=== PATIENT | male | born 1990 | race Hispanic/Latino ===

== ENCOUNTER 2017-11-09 16:53 | Emergency (ER) | payer SELFPAY ==
[~2017-11-09] VITALS: Ht 154.9 cm; Wt 61.4 kg
[~2017-11-09 16:53] MED LIST: CEPHALEXIN500 M1 OR; CEPHALEXIN500 MG PO; CLARITIN10 M1 PO; ULTRAM50 M1 PO
[2017-11-09] MEDS ORDERED: ZYRTEC10 MG PO (17:21)
[2017-11-09] MEDS ORDERED: PREDNISONE10 MG PO (17:21)
[2017-11-09 17:24] VITALS: BP 129/86
== END 2017-11-09 17:24 | disposition home or self-care (01) | DRG 153 ==
LOC: ED 16:53
DX: J02.9 Acute pharyngitis, unspecified (principal); F17.210 Nicotine dependence, cigarettes, uncomplicated

== ENCOUNTER 2017-12-24 14:10 | Emergency (ER) | payer SELFPAY ==
[~2017-12-24] VITALS: Ht 154.9 cm; Wt 65.0 kg
[~2017-12-24 14:10] MED LIST changes: +PREDNISONE10 MG PO; +ZYRTEC10 MG PO
[2017-12-24] MEDS ORDERED: DELTASONE20 MG PO (14:34)
[2017-12-24 14:45] VITALS: BP 132/77
== END 2017-12-24 14:45 | disposition home or self-care (01) | DRG 607 ==
LOC: ED 14:10
DX: L25.9 Unspecified contact dermatitis, unspecified cause (principal)

== ENCOUNTER 2019-01-26 09:23 | Emergency (ER) | payer SELFPAY ==
[~2019-01-26] VITALS: Ht 154.9 cm; Wt 65.0 kg
[~2019-01-26 09:23] MED LIST changes: +DELTASONE20 MG PO
[2019-01-26] MEDS ORDERED: BENADRYL 50MG C50 MG PO (09:33)
[2019-01-26] MEDS ORDERED: MEDDOSEPAK PO (09:33)
[2019-01-26] MEDS ORDERED: BENADRY2 EX (09:33)
[2019-01-26 09:52] VITALS: BP 131/85
== END 2019-01-26 09:52 | disposition home or self-care (01) | DRG 607 ==
LOC: ED 09:23
DX: L23.7 Allergic contact dermatitis due to plants, except food (principal); F17.200 Nicotine dependence, unspecified, uncomplicated

== ENCOUNTER 2019-04-22 22:32 | Emergency (ER) | payer OTHER ==
[~2019-04-22] VITALS: Ht 2.5 cm; Wt 60.8 kg
[~2019-04-22 22:32] MED LIST changes: +BENADRY2 EX; +BENADRYL 50MG C50 MG PO; +MEDDOSEPAK PO
[2019-04-22] MEDS ORDERED: AMOXICILLIN500 MG PO (23:21)
[2019-04-22 23:35] VITALS: BP 131/87
== END 2019-04-22 23:35 | disposition home or self-care (01) ==
LOC: ED 22:32
DX: H66.92 Otitis media, unspecified, left ear (principal); J02.9 Acute pharyngitis, unspecified; F17.210 Nicotine dependence, cigarettes, uncomplicated

== ENCOUNTER 2019-05-02 20:35 | Emergency (ER) | payer OTHER ==
[~2019-05-02] VITALS: Ht 157.5 cm; Wt 63.6 kg
[~2019-05-02 20:35] MED LIST changes: +AMOXICILLIN500 MG PO
[2019-05-02 21:22] LABS: HEMATOCRIT 40.3 % (39.0-50.0); HEMOGLOBIN 13.2 g/dl (14.0-18.0); IMMATURE GRANULOCYTES 0.3 % (0.0-5.0); MEAN CELL VOLUME 93.9 fL CALC (80.0-100.0); MEAN CORPUSCULAR HGB 30.8 pG CALC (26.0-32.0); MEAN CORPUSCULAR HGB CONC 32.8 g/L CALC (32.0-36.0); NEUT# 6.62 thou/uL (1.82-7.42); RED BLOOD COUNT 4.29 mill/uL (4.70-6.10); RED CELL DISTRI WIDTH 12.9 % (11.5-15.5)
[2019-05-02 21:23] LABS: URINE BILIRUBIN - DIPSTICK NEGATIVE (NEGATIVE); URINE BLOOD DIPSTICK LARGE (NEGATIVE); URINE GLUCOSE - DIPSTICK NEGATIVE (NEGATIVE); URINE KETONE NEGATIVE (NEGATIVE); URINE LEUK ESTERASE NEGATIVE (NEGATIVE); URINE NITRITE - DIPSTICK NEGATIVE (Negative); URINE PROTEIN - DIPSTICK 30 mg/dL (NEG-TRACE); URINE SPECIFIC GRAVITY 1.025
[2019-05-02 21:24] LABS: URINE COLOR AMBER
[2019-05-02 21:29] LABS: URINE RBC >100 RBC/hpf (0-5)
[2019-05-02 21:43] LABS: ALKALINE PHOSPHATASE 110 u/l (38-126); AMYLASE 46 u/l (30-110); ANION GAP 16 (6-22 (CALC)); BILIRUBIN, TOTAL 0.3 mg/dL (0.0-1.4); BUN 13 mg/dL (9-20); BUN/CREATININE RATIO 16 (12-20 (CALC)); CARBON DIOXIDE 25 mmol/l (22-30); CHLORIDE 104 mmol/l (95-108); CREATININE 0.8 mg/dL (0.7-1.3); GFR > 60 ML/MIN (>=60 (CALC)); GFR FOR AFR.AMER. > 60 ML/MIN (>=60 (CALC)); LIPASE 86 u/l (23-300); POTASSIUM 4.3 mmol/l (3.5-5.1); SGOT/AST 29 u/l (17-59); SODIUM 140 mmol/l (137-146); TOTAL PROTEIN 8.6 g/dL (6.3-8.2)
[2019-05-02] MEDS ORDERED: LORTAB 1010 MG PO (23:19)
[2019-05-02] MEDS ORDERED: TAMSULOSIN0.4 MG PO (23:19)
[2019-05-02 23:22] VITALS: BP 118/79
== END 2019-05-02 23:35 | disposition home or self-care (01) ==
LOC: ED 20:35
PROVIDERS: Emergency Medicine
DX: N20.0 Calculus of kidney (principal); F17.210 Nicotine dependence, cigarettes, uncomplicated; Z87.442 Personal history of urinary calculi
CPT/HCPCS: Q9967

== ENCOUNTER 2019-05-04 13:56 | Emergency (ER) | payer OTHER ==
[~2019-05-04] VITALS: Ht 157.5 cm; Wt 63.0 kg
[~2019-05-04 13:56] MED LIST changes: +LORTAB 1010 MG PO; +TAMSULOSIN0.4 MG PO
[2019-05-04 14:47] LABS: HEMATOCRIT 37.8 % (39.0-50.0); HEMOGLOBIN 12.2 g/dl (14.0-18.0); IMMATURE GRANULOCYTES 0.4 % (0.0-5.0); MEAN CELL VOLUME 93.8 fL CALC (80.0-100.0); MEAN CORPUSCULAR HGB 30.3 pG CALC (26.0-32.0); MEAN CORPUSCULAR HGB CONC 32.3 g/L CALC (32.0-36.0); NEUT# 12.8 thou/uL (1.82-7.42); RED BLOOD COUNT 4.03 mill/uL (4.70-6.10); RED CELL DISTRI WIDTH 12.7 % (11.5-15.5)
[2019-05-04 14:59] LABS: ALBUMIN 4.5 g/dL (3.2-5.0); ALKALINE PHOSPHATASE 108 u/l (38-126); ANION GAP 13 (6-22 (CALC)); BUN 8 mg/dL (9-20); BUN/CREATININE RATIO 9 (12-20 (CALC)); CARBON DIOXIDE 25 mmol/l (22-30); CHLORIDE 105 mmol/l (95-108); CREATININE 0.9 mg/dL (0.7-1.3); GFR > 60 ML/MIN (>=60 (CALC)); GFR FOR AFR.AMER. > 60 ML/MIN (>=60 (CALC)); LIPASE 57 u/l (23-300); SGOT/AST 25 u/l (17-59); SODIUM 140 mmol/l (137-146); TOTAL PROTEIN 7.7 g/dL (6.3-8.2)
[2019-05-04 15:02] LABS: BILIRUBIN, TOTAL 0.5 mg/dL (0.0-1.4)
[2019-05-04] MEDS ORDERED: CEPHALEXIN500 MG PO (16:09)
[2019-05-04 16:29] VITALS: BP 110/57
[2019-05-04 16:31] LABS: URINE BILIRUBIN - DIPSTICK NEGATIVE (NEGATIVE); URINE BLOOD DIPSTICK LARGE (NEGATIVE); URINE COLOR YELLOW; URINE GLUCOSE - DIPSTICK NEGATIVE (NEGATIVE); URINE KETONE TRACE mg/dL (NEGATIVE); URINE LEUK ESTERASE NEGATIVE (NEGATIVE); URINE NITRITE - DIPSTICK NEGATIVE (Negative); URINE PH 5.5 (4.5-8.0); URINE PROTEIN - DIPSTICK 30 mg/dL (NEG-TRACE); URINE SPECIFIC GRAVITY 1.025; URINE UROBILINOGEN - DIPSTICK 0.2 E.U./dL (0.2)
[2019-05-04 16:37] LABS: URINE RBC TNTC RBC/hpf (0-5); URINE SQUAMOUS EPITHELIAL CELL FEW EPI/hpf (0-FEW)
== END 2019-05-04 16:31 | disposition home or self-care (01) ==
LOC: ED 13:56
PROVIDERS: Family Medicine
DX: N13.2 Hydronephrosis with renal and ureteral calculous obstruction (principal); F17.210 Nicotine dependence, cigarettes, uncomplicated; Z87.442 Personal history of urinary calculi

== ENCOUNTER 2019-06-20 12:07 | Day surgery (SDC) | payer OTHER ==
[~2019-06-20 12:07] MED LIST changes: +BL IBUPROFEN200 MG PO; +TYLENOL500 MG PO
[2019-06-20] MEDS ORDERED: PERCOCET 10/31 COMBO PO (17:51)
[2019-06-20 18:07] VITALS: BP 118/79
== END 2019-06-20 18:04 | disposition home or self-care (01) ==
LOC: ORM 12:07
PROVIDERS: ATTEND Urology
DX: N20.1 Calculus of ureter (principal)
CPT/HCPCS: C1769

== ENCOUNTER 2019-06-21 19:43 | Emergency (ER) | payer OTHER ==
[~2019-06-21] VITALS: Ht 154.9 cm; Wt 59.0 kg
[~2019-06-21 19:43] MED LIST changes: +PERCOCET 10/31 COMBO PO
[2019-06-21 20:35] LABS: HEMATOCRIT 41.2 % (39.0-50.0); HEMOGLOBIN 13.4 g/dl (14.0-18.0); IMMATURE GRANULOCYTES 0.1 % (0.0-5.0); MEAN CELL VOLUME 94.5 fL CALC (80.0-100.0); MEAN CORPUSCULAR HGB 30.7 pG CALC (26.0-32.0); MEAN CORPUSCULAR HGB CONC 32.5 g/L CALC (32.0-36.0); NEUT# 2.74 thou/uL (1.82-7.42); RED BLOOD COUNT 4.36 mill/uL (4.70-6.10)
[2019-06-21 20:45] LABS: ALBUMIN 4.8 g/dL (3.2-5.0); ALKALINE PHOSPHATASE 94 u/l (38-126); ANION GAP 16 (6-22 (CALC)); BUN 10 mg/dL (9-20); BUN/CREATININE RATIO 9 (12-20 (CALC)); CARBON DIOXIDE 28 mmol/l (22-30); CHLORIDE 101 mmol/l (95-108); CREATININE 1.1 mg/dL (0.7-1.3); GFR > 60 ML/MIN (>=60 (CALC)); GFR FOR AFR.AMER. > 60 ML/MIN (>=60 (CALC)); POTASSIUM 4.3 mmol/l (3.5-5.1); SGOT/AST 28 u/l (17-59); SODIUM 140 mmol/l (137-146); TOTAL PROTEIN 8.3 g/dL (6.3-8.2)
[2019-06-21 20:47] LABS: BILIRUBIN, TOTAL 0.2 mg/dL (0.0-1.4)
[2019-06-21 20:51] LABS: URINE BILIRUBIN - DIPSTICK NEGATIVE (NEGATIVE); URINE BLOOD DIPSTICK MODERATE (NEGATIVE); URINE COLOR YELLOW; URINE GLUCOSE - DIPSTICK NEGATIVE (NEGATIVE); URINE KETONE NEGATIVE (NEGATIVE); URINE LEUK ESTERASE NEGATIVE (NEGATIVE); URINE NITRITE - DIPSTICK NEGATIVE (Negative); URINE PROTEIN - DIPSTICK NEGATIVE (NEG-TRACE); URINE SPECIFIC GRAVITY 1.025
[2019-06-21 21:02] LABS: URINE WBC 0-2 WBC/hpf (0-5)
[2019-06-21 21:55] VITALS: BP 128/82
== END 2019-06-21 21:59 | disposition home or self-care (01) ==
LOC: ED 19:43
PROVIDERS: Family Medicine
DX: R10.12 Left upper quadrant pain (principal); F17.210 Nicotine dependence, cigarettes, uncomplicated

== ENCOUNTER 2020-09-02 10:52 | Emergency (ER) | payer OTHER ==
[~2020-09-02] VITALS: Ht 154.9 cm; Wt 64.0 kg
[2020-09-02 11:44] LABS: HEMATOCRIT 41.7 % (39.0-50.0); HEMOGLOBIN 13.6 g/dl (14.0-18.0); IMMATURE GRANULOCYTES 0.4 % (0.0-5.0); MEAN CELL VOLUME 92.9 fL CALC (80.0-100.0); MEAN CORPUSCULAR HGB 30.3 pG CALC (26.0-32.0); MEAN CORPUSCULAR HGB CONC 32.6 g/dL CAL (32.0-36.0); NEUT# 11.59 thou/uL (1.82-7.42); RED BLOOD COUNT 4.49 mill/uL (4.70-6.10); RED CELL DISTRI WIDTH 12.4 % (11.5-15.5)
[2020-09-02 11:54] LABS: ALBUMIN 4.9 g/dL (3.2-5.0); ANION GAP 13 (6-22 (CALC)); BUN 10 mg/dL (9-20); BUN/CREATININE RATIO 12 (12-20 (CALC)); CARBON DIOXIDE 25 mmol/l (22-30); CHLORIDE 102 mmol/l (95-108); CREATININE 0.9 mg/dL (0.7-1.3); GFR > 60 ML/MIN (>=60 (CALC)); GFR FOR AFR.AMER. > 60 ML/MIN (>=60 (CALC)); POTASSIUM 3.7 mmol/l (3.5-5.1); SGOT/AST 38 u/l (17-59); SODIUM 137 mmol/l (137-146); TOTAL PROTEIN 8.6 g/dL (6.3-8.2)
[2020-09-02 11:57] LABS: ALKALINE PHOSPHATASE 145 u/l (38-126); BILIRUBIN, TOTAL 0.7 mg/dL (0.0-1.4)
[2020-09-02 12:06] LABS: MYOGLOBIN 29 ng/mL (0 - 121)
[2020-09-02] MEDS ORDERED: KEFLEX500 M1 PO (12:47)
[2020-09-02 13:43] VITALS: BP 130/73
== END 2020-09-02 13:43 | disposition home or self-care (01) | DRG 313 ==
LOC: ED 10:52
PROVIDERS: Emergency Medicine
DX: R07.89 Other chest pain (principal); J06.9 Acute upper respiratory infection, unspecified; F17.210 Nicotine dependence, cigarettes, uncomplicated; Z87.442 Personal history of urinary calculi; Z20.822 Contact with and (suspected) exposure to COVID-19

== ENCOUNTER 2021-07-27 18:51 | Emergency (ER) | payer OTHER ==
[~2021-07-27 18:51] MED LIST changes: +KEFLEX500 M1 PO
== END 2021-07-27 22:10 | disposition left against medical advice (07) | DRG 951 ==
LOC: ED 18:51 → LWOBS 20:10 → AMA 20:10 → LWOBS 22:10
DX: Z53.21 Procedure and treatment not carried out due to patient leaving prior to being seen by health care provider (principal)

== ENCOUNTER 2022-05-23 06:49 | Emergency (ER) | payer OTHER ==
[~2022-05-23] VITALS: Ht 154.9 cm; Wt 64.0 kg
[2022-05-23] MEDS ORDERED: AMOX/K CLAV875 M1 PO (07:16)
[2022-05-23 07:24] VITALS: BP 147/107
== END 2022-05-23 07:28 | disposition home or self-care (01) ==
LOC: ED 06:49
DX: J32.9 Chronic sinusitis, unspecified (principal); F17.200 Nicotine dependence, unspecified, uncomplicated

== ENCOUNTER 2022-06-13 11:07 | Emergency (ER) | payer OTHER ==
[2022-06-13] VITALS (11 sets, daily range): BP systolic 110–146; BP diastolic 65–98
[~2022-06-13] VITALS: Ht 154.9 cm; Wt 63.6 kg
[~2022-06-13 11:07] MED LIST changes: +AMOX/K CLAV875 M1 PO
[2022-06-13 11:28] LABS: HEMATOCRIT 46.2 % (39.0-50.0); HEMOGLOBIN 15.2 g/dl (14.0-18.0); IMMATURE GRANULOCYTES 0.1 % (0.0-5.0); MEAN CELL VOLUME 93.1 fL CALC (80.0-100.0); MEAN CORPUSCULAR HGB 30.6 pG CALC (26.0-32.0); MEAN CORPUSCULAR HGB CONC 32.9 g/dL CAL (32.0-36.0); NEUT# 3.12 thou/uL (1.82-7.42); RED BLOOD COUNT 4.96 mill/uL (4.70-6.10); RED CELL DISTRI WIDTH 12.2 % (11.5-15.5)
[2022-06-13 11:38] LABS: ALBUMIN 5.1 g/dL (3.2-5.0); ALKALINE PHOSPHATASE 139 u/l (38-126); ANION GAP 17 (6-22 (CALC)); BILIRUBIN, TOTAL 0.5 mg/dL (0.0-1.4); BUN 11 mg/dL (9-20); BUN/CREATININE RATIO 11 (12-20 (CALC)); CARBON DIOXIDE 26 mmol/l (22-30); CHLORIDE 106 mmol/l (95-108); GFR FOR AFR.AMER. > 60 ML/MIN (>=60 (CALC)); GFR OTHER RACES > 60 ML/MIN (>=60 (CALC)); SGOT/AST 38 u/l (17-59); SODIUM 145 mmol/l (137-146); TOTAL PROTEIN 8.8 g/dL (6.3-8.2)
[2022-06-13 11:46] LABS: URINE BILIRUBIN - DIPSTICK NEGATIVE (NEGATIVE); URINE BLOOD DIPSTICK LARGE (NEGATIVE); URINE GLUCOSE - DIPSTICK 100 mg/dL (NEGATIVE); URINE KETONE 15 mg/dL (NEGATIVE); URINE LEUK ESTERASE SMALL (Negative); URINE NITRITE - DIPSTICK POSITIVE (Negative); URINE PROTEIN - DIPSTICK >=300 mg/dL (NEG-TRACE); URINE SPECIFIC GRAVITY 1.025
[2022-06-13 11:47] LABS: URINE BACTERIA FEW hpf; URINE CLARITY BLOODY; URINE COLOR RED; URINE MUCUS MANY hpf (NONE-FEW); URINE RBC 50-100 RBC/hpf (0-5); URINE WBC 0-2 WBC/hpf (0-5)
[2022-06-13] MEDS ORDERED: CEPHALEXIN500 MG PO (13:42)
[2022-06-13] MEDS ORDERED: TORADOL PO (13:42)
[2022-06-13] MEDS ORDERED: TAMSULOSIN0.4 MG PO (13:42)
[2022-06-13] MEDS ORDERED: HYDROCO/APAP1 TA9 PO (13:42)
== END 2022-06-13 14:04 | disposition home or self-care (01) ==
LOC: ED 11:07
PROVIDERS: Family Medicine
DX: N13.6 Pyonephrosis (principal); F17.210 Nicotine dependence, cigarettes, uncomplicated; Z87.442 Personal history of urinary calculi

== ENCOUNTER 2022-07-05 12:53 | Emergency (ER) | payer OTHER ==
[2022-07-05] VITALS (8 sets, daily range): BP systolic 100–136; BP diastolic 61–93
[~2022-07-05] VITALS: Ht 154.9 cm; Wt 64.0 kg
[~2022-07-05 12:53] MED LIST changes: +HYDROCO/APAP1 TA9 PO; +TORADOL PO
[2022-07-05 13:29] LABS: URINE BLOOD DIPSTICK LARGE (NEGATIVE); URINE COLOR YELLOW; URINE GLUCOSE - DIPSTICK NEGATIVE (NEGATIVE); URINE KETONE TRACE mg/dL (NEGATIVE); URINE LEUK ESTERASE NEGATIVE (NEGATIVE); URINE PROTEIN - DIPSTICK 30 mg/dL (NEG-TRACE); URINE SPECIFIC GRAVITY >=1.030; URINE UROBILINOGEN - DIPSTICK 0.2 E.U./dL (0.2)
[2022-07-05 13:34] LABS: URINE BILIRUBIN - DIPSTICK SMALL (NEGATIVE); URINE NITRITE - DIPSTICK NEGATIVE (Negative)
[2022-07-05 13:35] LABS: URINE MUCUS FEW hpf (NONE-FEW)
[2022-07-05 13:47] LABS: HEMATOCRIT 41.1 % (39.0-50.0); HEMOGLOBIN 13.8 g/dl (14.0-18.0); IMMATURE GRANULOCYTES 0.1 % (0.0-5.0); MEAN CELL VOLUME 93.2 fL CALC (80.0-100.0); MEAN CORPUSCULAR HGB 31.3 pG CALC (26.0-32.0); MEAN CORPUSCULAR HGB CONC 33.6 g/dL CAL (32.0-36.0); NEUT# 10.26 thou/uL (1.82-7.42); RED BLOOD COUNT 4.41 mill/uL (4.70-6.10); RED CELL DISTRI WIDTH 12.2 % (11.5-15.5)
[2022-07-05 14:07] LABS: ALBUMIN 4.7 g/dL (3.2-5.0); ALKALINE PHOSPHATASE 138 u/l (38-126); ANION GAP 12 (6-22 (CALC)); BILIRUBIN, TOTAL 0.4 mg/dL (0.0-1.4); BUN 13 mg/dL (9-20); BUN/CREATININE RATIO 11 (12-20 (CALC)); CARBON DIOXIDE 28 mmol/l (22-30); CHLORIDE 105 mmol/l (95-108); CREATININE 1.2 mg/dL (0.7-1.3); GFR FOR AFR.AMER. > 60 ML/MIN (>=60 (CALC)); GFR OTHER RACES > 60 ML/MIN (>=60 (CALC)); LIPASE 75 u/l (23-300); POTASSIUM 4.2 mmol/l (3.5-5.1); SGOT/AST 31 u/l (17-59); SODIUM 141 mmol/l (137-146); TOTAL PROTEIN 8.2 g/dL (6.3-8.2)
[2022-07-05] MEDS ORDERED: TORADOL PO (15:36)
[2022-07-05] MEDS ORDERED: HYDROCO/APAP1 TA9 PO (15:36)
[2022-07-05] MEDS ORDERED: TAMSULOSIN0.4 MG PO (15:36)
== END 2022-07-05 16:14 | disposition home or self-care (01) ==
LOC: ED 12:53
PROVIDERS: Emergency Medicine; Nurse Practitioner
DX: N13.2 Hydronephrosis with renal and ureteral calculous obstruction (principal); Z87.442 Personal history of urinary calculi; F17.200 Nicotine dependence, unspecified, uncomplicated

== ENCOUNTER 2022-07-19 18:37 | Emergency (ER) | payer OTHER ==
[~2022-07-19] VITALS: Ht 154.9 cm; Wt 58.0 kg
[2022-07-19 19:08] VITALS: BP 150/98
[2022-07-19 19:15] VITALS: BP 151/102
[2022-07-19 19:43] VITALS: BP 119/82
[2022-07-19 19:47] LABS: BASO% 0.4 % (0-3); EOS% 2.3 % (0-8); HEMOGLOBIN 13.2 g/dl (14.0-18.0); IMMATURE GRANULOCYTES 0.1 % (0.0-5.0); LYMPH% 12.8 % (15-41); MEAN CORPUSCULAR HGB 31.8 pG CALC (26.0-32.0); MEAN CORPUSCULAR HGB CONC 33.8 g/dL CAL (32.0-36.0); MONO% 6.4 % (2-13); NEUT# 11.01 thou/uL (1.82-7.42); RED BLOOD COUNT 4.15 mill/uL (4.70-6.10); RED CELL DISTRI WIDTH 12.2 % (11.5-15.5)
[2022-07-19 20:00] VITALS: BP 112/77
[2022-07-19 20:08] LABS: ALBUMIN 4.9 g/dL (3.2-5.0); ALKALINE PHOSPHATASE 110 u/l (38-126); ANION GAP 15 (6-22 (CALC)); BILIRUBIN, TOTAL 0.5 mg/dL (0.0-1.4); BUN 14 mg/dL (9-20); BUN/CREATININE RATIO 10 (12-20 (CALC)); CARBON DIOXIDE 26 mmol/l (22-30); CHLORIDE 106 mmol/l (95-108); CREATININE 1.3 mg/dL (0.7-1.3); GFR FOR AFR.AMER. > 60 ML/MIN (>=60 (CALC)); GFR OTHER RACES > 60 ML/MIN (>=60 (CALC)); POTASSIUM 4.3 mmol/l (3.5-5.1); SGOT/AST 35 u/l (17-59); SODIUM 142 mmol/l (137-146); TOTAL PROTEIN 8.8 g/dL (6.3-8.2)
[2022-07-19 20:17] LABS: URINE BILIRUBIN - DIPSTICK NEGATIVE (NEGATIVE); URINE BLOOD DIPSTICK LARGE (NEGATIVE); URINE COLOR YELLOW; URINE GLUCOSE - DIPSTICK NEGATIVE (NEGATIVE); URINE KETONE NEGATIVE (NEGATIVE); URINE LEUK ESTERASE NEGATIVE (NEGATIVE); URINE PROTEIN - DIPSTICK NEGATIVE (NEG-TRACE); URINE SPECIFIC GRAVITY >=1.030; URINE UROBILINOGEN - DIPSTICK 0.2 E.U./dL (0.2)
[2022-07-19 20:20] LABS: URINE NITRITE - DIPSTICK NEGATIVE (Negative)
[2022-07-19 20:26] LABS: URINE CALCIUM OXALATE CRYSTALS FEW lpf; URINE WBC 0-2 WBC/hpf (0-5)
[2022-07-19 20:30] VITALS: BP 101/64
[2022-07-19] MEDS ORDERED: TAMSULOSIN0.4 MG PO (20:37)
[2022-07-19] MEDS ORDERED: TORADOL PO (20:37)
[2022-07-19 20:45] VITALS: BP 101/64
== END 2022-07-19 21:00 | disposition home or self-care (01) ==
LOC: ED 18:37
PROVIDERS: Nurse Practitioner
DX: N13.2 Hydronephrosis with renal and ureteral calculous obstruction (principal); Z87.442 Personal history of urinary calculi